=== PATIENT | female | born 1955 | race Caucasian/White ===

== ENCOUNTER 2018-01-08 03:28 | Inpatient (IN) | payer MEDICARE, OTHER ==
[2018-01-08] VITALS (11 sets, daily range): BP systolic 111–177; BP diastolic 69–81
[~2018-01-08] VITALS: Ht 167.6 cm; Wt 80.0 kg
[~2018-01-08 03:28] MED LIST: ASPI-1264 PO; CARV-50 PO; CETI-102 PO; CITA20TA2 PO; IBUP-1984 PO; LISI-600 PO; SPIR25TA3 PO
[2018-01-08] MEDS ORDERED: nitroGLYCERIN-Tridil 50MG/D5W 250 ML IV PRN (03:35)
[2018-01-08 03:47] LABS: BASOPHILS % (AUTO) 0.3 % (0-1); EOSINOPHILS # (AUTO) 0.3 X10'3 (0-0.9); EOSINOPHILS % (AUTO) 3.2 % (0-6); HEMATOCRIT 34.5 % (35.0-45.0); HEMOGLOBIN 11.4 g/dl (12.0-16.0); LYMPHOCYTES # (AUTO) 1.6 X10'3 (1.1-4.8); LYMPHOCYTES % (AUTO) 15.9 % (21-51); MEAN CORPUSCULAR HEMOGLOBIN 30.9 PG (27.0-31.0); MEAN CORPUSCULAR HGB CONC 33.2 % (33.0-36.5); MEAN CORPUSCULAR VOLUME 93.2 FL (78-98); MEAN PLATELET VOLUME 8.2 FL (7.4-10.4); MONOCYTES # (AUTO) 0.4 X10'3 (0-0.9); MONOCYTES % (AUTO) 4.1 % (2-12); NEUTROPHILS # (AUTO) 7.6 X10'3 (1.8-7.7); NEUTROPHILS % (AUTO) 76.5 % (42-75); PLATELET COUNT 193 X10'3 (140-440); RED CELL DISTRIBUTION WIDTH 14.4 % (11.5-14.5); WHITE BLOOD COUNT 9.9 X10'3 (4.5-11.0)
[2018-01-08 03:57] LABS: INR 1.1 INR; PARTIAL THROMBOPLASTIN TIME 23 SECONDS (22-32); PROTHROMBIN TIME 10.9 SECONDS (9.0-12.0)
[2018-01-08 04:10] LABS: ALANINE AMINOTRANSFERASE 20 U/L (12-78); ALBUMIN 3.2 G/DL (3.4-5.0); ALBUMIN/GLOBULIN RATIO 0.9 (1.1-1.5); ALKALINE PHOSPHATASE 70 IU/L (46-116); ANION GAP 12 (8-16); ASPARTATE AMINO TRANSFERASE 18 U/L (10-37); BILIRUBIN,TOTAL 0.7 MG/DL (0.1-1.0); BLOOD UREA NITROGEN 22 MG/DL (7-18); BUN/CREATININE RATIO 25.9 (6.6-38.0); CALCIUM 8.1 MG/DL (8.5-10.1); CHLORIDE 106 MMOL/L (99-107); CREATININE 0.85 MG/DL (0.40-0.90); GLUCOSE 176 MG/DL (70-104); MAGNESIUM 1.9 MG/DL (1.5-2.4); POTASSIUM 3.7 MMOL/L (3.5-5.1); SODIUM 142 MMOL/L (135-145); TOTAL CARBON DIOXIDE 23.6 MMOL/L (24-32); TOTAL PROTEIN 6.9 G/DL (6.4-8.2); eGFR 67 ML/MIN
[2018-01-08 04:36] LABS: ABG BASE EXCESS 0.2 mmol/L (-2.0-3.0); ABG OXYGEN SATURATION 95.6 % (95-98); ABG PCO2 (T) 35.2 mmHg (32.0-45.0); ABG PH (T) 7.448 (7.350-7.450); ABG PO2 (T) 79.5 mmHg (83-108); ALLEN'S TEST Positive; FCOHb 0.3 % (0.5-1.5); FMetHb 0.3 % (0.3-1.12); MINUTE VOLUME 20 L/min; PATIENT TEMPERATURE 36.5; RESPIRATORY RATE 20 b/min; RESPIRATORY RATE (OBSERVED) 22 b/min; TOTAL HEMOGLOBIN 12.2 G/dl (12.0-16.0)
[2018-01-08] MEDS ORDERED: furosemide 10 MG/1 ML 10ml inj IV ONE (06:00)
[2018-01-08] MEDS ORDERED: magnesium hydroxide 30ml (MOM) UD suspension PO PRN (08:45)
[2018-01-08] MEDS ORDERED: mag hydrox/Alum hydrox/simeth 30ml oral suspension PO PRN (08:45)
[2018-01-08] MEDS ORDERED: ondansetron/PF 4mg/2ml inj IV PRN (08:45)
[2018-01-08] MEDS ORDERED: acetaminophen 325mg tablet PO PRN (08:45)
[2018-01-08] MEDS ORDERED: iohexol 350MG/ML 100ml bottle IV ONE (13:05)
[2018-01-08] MEDS: carVEDilol 12.5mg tablet PO SCH (20:44)
[2018-01-08] MEDS: ibuprofen tablet 400 MG TABLET PO SCH (20:44)
[2018-01-08] MEDS: furosemide 10 MG/1 ML 10ml inj IV SCH (20:46)
[2018-01-09] VITALS (17 sets, daily range): BP systolic 101–161; BP diastolic 58–93
[2018-01-09 05:12] LABS: BASOPHILS % (AUTO) 0.6 % (0-1); EOSINOPHILS # (AUTO) 0.2 X10'3 (0-0.9); EOSINOPHILS % (AUTO) 3.7 % (0-6); HEMATOCRIT 33.6 % (35.0-45.0); HEMOGLOBIN 11.4 g/dl (12.0-16.0); LYMPHOCYTES # (AUTO) 2.1 X10'3 (1.1-4.8); LYMPHOCYTES % (AUTO) 34.9 % (21-51); MEAN CORPUSCULAR VOLUME 91.2 FL (78-98); MEAN PLATELET VOLUME 8.8 FL (7.4-10.4); MONOCYTES # (AUTO) 0.5 X10'3 (0-0.9); MONOCYTES % (AUTO) 8.9 % (2-12); NEUTROPHILS # (AUTO) 3.2 X10'3 (1.8-7.7); NEUTROPHILS % (AUTO) 51.9 % (42-75); PLATELET COUNT 218 X10'3 (140-440); RED BLOOD COUNT 3.69 X10'6 (4.20-5.60); RED CELL DISTRIBUTION WIDTH 14.7 % (11.5-14.5); WHITE BLOOD COUNT 6.1 X10'3 (4.5-11.0)
[2018-01-09 06:16] LABS: ALBUMIN 3.2 G/DL (3.4-5.0); ANION GAP 12 (8-16); BLOOD UREA NITROGEN 20 MG/DL (7-18); BUN/CREATININE RATIO 20.8 (6.6-38.0); CALCIUM 8.7 MG/DL (8.5-10.1); CHLORIDE 104 MMOL/L (99-107); CREATININE 0.96 MG/DL (0.40-0.90); GLUCOSE 99 MG/DL (70-104); SODIUM 143 MMOL/L (135-145); TOTAL CARBON DIOXIDE 27.4 MMOL/L (24-32); eGFR 59 ML/MIN
[2018-01-09 06:23] LABS: POTASSIUM 2.8 MMOL/L (3.5-5.1)
[2018-01-09] MEDS ORDERED: magnesium 4gm in 100ml NS 100 ML IV PRN (07:25)
[2018-01-09] MEDS ORDERED: magnesium 2GM in 50ml NS 50 ML IV PRN (07:25)
[2018-01-09] MEDS ORDERED: magnesium Cl slow-release 64mg tablet PO PRN (07:25)
[2018-01-09] MEDS ORDERED: potassium Cl 40MEQ/NS 500ml 500 ML IV PRN ×2 (07:25)
[2018-01-09] MEDS ORDERED: potassium Cl 20 mEq SR tablet PO PRN (07:25)
[2018-01-09] MEDS: ibuprofen tablet 400 MG TABLET PO SCH ×2 (08:15→20:01)
[2018-01-09] MEDS: citalopram 20mg tablet PO SCH (08:15)
[2018-01-09] MEDS: furosemide 10 MG/1 ML 10ml inj IV SCH (08:15)
[2018-01-09] MEDS: carVEDilol 12.5mg tablet PO SCH ×2 (08:15→20:02)
[2018-01-09] MEDS: potassium Cl 20 mEq SR tablet PO PRN ×2 (08:16→12:43)
[2018-01-09] MEDS: enoxaparin 40mg/0.4ml syringe SQ SCH (08:16)
[2018-01-09] MEDS: lisinopril 20mg tablet PO SCH (08:16)
[2018-01-09] MEDS: furosemide 40mg tablet PO SCH (20:01)
[2018-01-10 02:00] VITALS: BP 165/83
[2018-01-10] MEDS ORDERED: nitroGLYCERIN-Tridil 50MG/D5W 250 ML IV PRN (03:35)
[2018-01-10 05:22] LABS: BASOPHILS % (AUTO) 0.7 % (0-1); EOSINOPHILS # (AUTO) 0.3 X10'3 (0-0.9); EOSINOPHILS % (AUTO) 4.8 % (0-6); HEMATOCRIT 35.2 % (35.0-45.0); HEMOGLOBIN 11.9 g/dl (12.0-16.0); LYMPHOCYTES # (AUTO) 2.2 X10'3 (1.1-4.8); LYMPHOCYTES % (AUTO) 35.2 % (21-51); MEAN CORPUSCULAR HEMOGLOBIN 31.1 PG (27.0-31.0); MEAN CORPUSCULAR HGB CONC 33.9 % (33.0-36.5); MEAN CORPUSCULAR VOLUME 91.6 FL (78-98); MEAN PLATELET VOLUME 8.6 FL (7.4-10.4); MONOCYTES # (AUTO) 0.6 X10'3 (0-0.9); MONOCYTES % (AUTO) 9.8 % (2-12); NEUTROPHILS # (AUTO) 3.1 X10'3 (1.8-7.7); NEUTROPHILS % (AUTO) 49.5 % (42-75); PLATELET COUNT 219 X10'3 (140-440); RED BLOOD COUNT 3.84 X10'6 (4.20-5.60); RED CELL DISTRIBUTION WIDTH 14.1 % (11.5-14.5); WHITE BLOOD COUNT 6.3 X10'3 (4.5-11.0)
[2018-01-10 06:19] LABS: ALANINE AMINOTRANSFERASE 20 U/L (12-78); ALBUMIN 3.3 G/DL (3.4-5.0); ALBUMIN/GLOBULIN RATIO 0.9 (1.1-1.5); ALKALINE PHOSPHATASE 65 IU/L (46-116); ANION GAP 13 (8-16); ASPARTATE AMINO TRANSFERASE 19 U/L (10-37); BILIRUBIN,TOTAL 0.6 MG/DL (0.1-1.0); BLOOD UREA NITROGEN 23 MG/DL (7-18); BUN/CREATININE RATIO 25.3 (6.6-38.0); CHLORIDE 105 MMOL/L (99-107); CREATININE 0.91 MG/DL (0.40-0.90); GLUCOSE 91 MG/DL (70-104); POTASSIUM 3.5 MMOL/L (3.5-5.1); SODIUM 144 MMOL/L (135-145); TOTAL CARBON DIOXIDE 26.3 MMOL/L (24-32); TOTAL PROTEIN 7.1 G/DL (6.4-8.2); eGFR 62 ML/MIN
[2018-01-10] MEDS: furosemide 40mg tablet PO SCH (07:39)
[2018-01-10] MEDS: citalopram 20mg tablet PO SCH (07:39)
[2018-01-10] MEDS: ibuprofen tablet 400 MG TABLET PO SCH (07:39)
[2018-01-10] MEDS: carVEDilol 12.5mg tablet PO SCH (07:39)
[2018-01-10] MEDS: lisinopril 20mg tablet PO SCH (07:39)
[2018-01-10] MEDS: enoxaparin 40mg/0.4ml syringe SQ SCH (07:41)
[2018-01-10] MEDS ORDERED: spironolactone 25 MG tablet PO SCH ×2 (08:30)
[2018-01-10 11:00] VITALS: BP 149/75
[2018-01-10] MEDS ORDERED: POTA20TA10 PO (14:14)
[2018-01-10] MEDS ORDERED: FURO40TA4 PO (14:14)
[2018-01-10] MEDS ORDERED: SPIR25TA3 PO (14:14)
== END 2018-01-10 15:35 | disposition home or self-care (01) | DRG 291 ==
LOC: ER 03:28 → ED HOLD 08:43 → EDBEDREQSVC 16:36 → EDBEDREQ 16:36 → PCU 3S 18:40
PROVIDERS: ADMIT Internal Medicine; ATTEND Family Medicine
PROC: 5A09357 Assistance with Respiratory Ventilation, Less than 24 Consecutive Hours, Continuous Positive Airway Pressure (ICD-10-PCS; principal; 2018-01-08)
PROC: B3201ZZ Computerized Tomography (CT Scan) of Thoracic Aorta using Low Osmolar Contrast (ICD-10-PCS; 2018-01-08)
DX: I11.0 Hypertensive heart disease with heart failure (principal); J96.20 Acute and chronic respiratory failure, unspecified whether with hypoxia or hypercapnia; I42.9 Cardiomyopathy, unspecified; I16.1 Hypertensive emergency; I50.23 Acute on chronic systolic (congestive) heart failure; E87.6 Hypokalemia; F32.9 Major depressive disorder, single episode, unspecified; I25.10 Atherosclerotic heart disease of native coronary artery without angina pectoris; Z98.1 Arthrodesis status; Z91.14 Patient's other noncompliance with medication regimen; Z91.19 Patient's noncompliance with other medical treatment and regimen; Z95.810 Presence of automatic (implantable) cardiac defibrillator; Z88.5 Allergy status to narcotic agent; Z79.82 Long term (current) use of aspirin; Z79.899 Other long term (current) drug therapy; Z87.891 Personal history of nicotine dependence; Z82.49 Family history of ischemic heart disease and other diseases of the circulatory system
CPT/HCPCS: 36415; 36600; 71045; 71275; 80048; 80053; 82803; 83735; 83880; 84484; 85018; 85025; 85610; 85730; 87070; 93005; 93306; 93971; 94660; 96374; 96375; 99285; J1650; J1940; J3490; J7030; Q9967

== ENCOUNTER 2020-06-25 17:37 | Emergency (ER) | payer MEDICARE ==
[~2020-06-25] VITALS: Ht 167.6 cm; Wt 86.4 kg
[~2020-06-25 17:37] MED LIST changes: -ASPI-1264 PO; -CETI-102 PO; +FURO40TA4 PO; -IBUP-1984 PO; +POTA20TA10 PO; -SPIR25TA3 PO; +SPIR25TA5 PO
[2020-06-25 17:41] VITALS: BP 162/86
[2020-06-25] MEDS ORDERED: CEPH250T PO (18:08)
[2020-06-25] MEDS ORDERED: DOXY100C76 PO (18:08)
== END 2020-06-25 18:20 | disposition home or self-care (01) ==
LOC: ER 17:37
DX: L03.116 Cellulitis of left lower limb (principal); M79.672 Pain in left foot; I11.0 Hypertensive heart disease with heart failure; I50.9 Heart failure, unspecified; Z95.0 Presence of cardiac pacemaker; Z88.5 Allergy status to narcotic agent; Z79.2 Long term (current) use of antibiotics; Z79.899 Other long term (current) drug therapy
CPT/HCPCS: 99283